=== PATIENT | male | born 1970 | race Caucasian/White ===

== ENCOUNTER → 2022-01-05 | Outpatient (CLI) | payer BC ==
--- NOTE | 2022-02-11 13:00 | EM ---
EVENT MONITOR INDICATION: Palpitations. This event monitor shows episodes of atrial fibrillation with rapid ventricular rate. The fastest heart rate was 187 beats per minute. There were no significant pauses and the patient had was intermittently in sinus rhythm. CONCLUSION: This 30-day event monitor shows multiple episodes of atrial fibrillation with heart rates in the 180 beats per minute. MMODL / IJN: [id number] /
== END | disposition home or self-care (01) ==
LOC: RADECHMAIN 07:26
PROVIDERS: ATTEND Internal Medicine
DX: I48.91 Unspecified atrial fibrillation (principal)
CPT/HCPCS: 93270

== ENCOUNTER 2022-01-08 14:51 | Observation (INO) | payer BC ==
[2022-01-08 14:56] VITALS: TEMP 98.1
[2022-01-08 15:18] LABS: Basophils # (A) 0.1 k/uL (0-0.2); Basophils % (A) 1 %; Eosinophils # (A) 0.4 k/uL (0-0.7); Eosinophils % (A) 5 %; HCT 40.4 % (39.0-53.0); HGB 13.9 gm/dL (13.0-17.5); Lymphocytes # (A) 2.3 k/uL (1.0-4.8); Lymphocytes % (A) 34 %; MCH 34.6 pg (25.0-35.0); MCHC 34.4 g/dL (31.0-37.0); MCV 100.7 fL (80.0-100.0); Mean Platelet Volume 7.8; Monocytes # (A) 0.4 k/uL (0-1.0); Monocytes % (A) 6 %; Neutrophils # (A) 3.4 k/uL (1.3-7.7); Neutrophils % (A) 50 %; Platelet Count 217 k/uL (150-450); RBC 4.01 m/uL (4.30-5.90); RDW 12.2 % (11.5-15.5); WBC 6.7 k/uL (3.8-10.6)
[2022-01-08 15:27] LABS: ALT 47 U/L (4-49); AST 68 U/L (17-59); African American GFR (CKD) >90 (>60 ml/min/1.73 sqM); Albumin 4.3 g/dL (3.5-5.0); Alkaline Phosphatase 105 U/L (38-126); Anion Gap 11 mmol/L; Blood Urea Nitrogen 22 mg/dL (9-20); Calcium 9.4 mg/dL (8.4-10.2); Carbon Dioxide 24 mmol/L (22-30); Chloride 100 mmol/L (98-107); Glucose 102 mg/dL (74-99); Magnesium 1.7 mg/dL (1.6-2.3); Non-African American GFR(CKD) >90 (>60 ml/min/1.73 sqM); Sodium 135 mmol/L (137-145); Total Bilirubin 0.4 mg/dL (0.2-1.3); Total Protein 6.6 g/dL (6.3-8.2)
[2022-01-08 15:34] LABS: Prothrombin Time 10.8 sec (9.0-12.0)
[2022-01-08] MEDS ORDERED: NALOXONE 0.4 MG/ML 1 ML VIAL IV PRN (17:53)
--- NOTE | 2022-01-08 17:58 | ED ---
General Adult HPI - General Chief complaint: Arrhythmia/Palpitations Stated complaint: Heart monitor issues-sent by PCP Time Seen by Provider: 01/08/22 17:23 Source: patient Mode of arrival: wheelchair Limitations: no limitations - History of Present Illness Initial comments: Dictation was produced using [employer] dictation software. please excuse any grammatical, word or spelling errors. Chief Complaint: 61-year-old male presents with instructions from primary care physician to come to the emergency room for abnormal Holter monitor reading History of Present Illness: Patient is a 61-year-old male he was told to come to the emergency department for abnormal Holter monitor reading. Patient has been wearing a Holter monitor for the last 2 days. Patient had a Holter monitor placed by his primary care doctor. Apparently Holter monitor company noticed that patient has been having heart rates in the 190-180 range concerning for atrial fibrillation paroxysms. Patient denies any symptoms currently. He has been having symptoms of palpitations. The ROS documented in this emergency department record has been reviewed and con firmed by me. Those systems with pertinent positive or negative responses have been documented in the HPI. All other systems are other negative and/or noncontributory. PHYSICAL EXAM: General Impression: Alert and oriented x3, not in acute distress HEENT: Normocephalic atraumatic, extra-ocular movements intact, pupils equal and reactive to light bilaterally, mucous membranes moist. Cardiovascular: Heart regular rate and rhythm Chest: Able to complete full sentences, no retractions, no tachypnea Abdomen: abdomen soft, non-tender, non-distended, no organomegaly Musculoskeletal: Pulses present and equal in all extremities, no peripheral edema Motor: no focal deficits noted Neurological: CN II-XII grossly intact, no focal motor or sensory deficits noted Skin: Intact with no visualized rashes Psych: Normal affect and mood ED course: 51-year-old male presents emergency department for episodes of abnormal Holter monitor readings. Patient was notified by his primary care doctor to come to the emergency department. Vital signs upon arrival are within acceptable limits. EKG is unremarkable. Laboratory evaluation ordered found to be unremarkable. Patient be admitted to Dr. Barajas. Cardiology consulted. Dr. Barajas requested that patient be started on twice a day metoprolol. EKG interpretation: Ventricular rate 76, sinus rhythm, HI interval 133, QS 93, QTc 389. No HI prolongation, no QTC prolongation, T-wave inversions in lead 3 and aVF noted. No old EKG for comparison.. Overall, this EKG is nonspecific - Related Data Allergies Allergy/AdvReac Type Severity Reaction Status Date / Time No Known Allergies Allergy Verified 01/08/22 14:56 Review of Systems ROS Statement: Those systems with pertinent positive or pertinent negative responses have been documented in the HPI. ROS Other: All systems not noted in ROS Statement are negative. Past Medical History Past Medical History: No Reported History History of Any Multi-Drug Resistant Organisms: None Reported Past Surgical History: Hernia Repair Past Psychological History: No Psychological Hx Reported Smoking Status: Current every day smoker Past Drug Use History: None Reported General Exam Limitations: no limitations Course Vital Signs 01/08/22 14:53 Temperature 98.1 F Pulse Rate 76 Respiratory 16 Rate Blood Pressure 161/95 O2 Sat by Pulse 99 Oximetry Medical Decision Making - Lab Data Result diagrams: 01/08/22 15:12 01/08/22 15:12 Lab Results 01/08/22 01/08/22 01/08/22 Range/Units 15:12 15:12 15:12 WBC 6.7 (3.8-10.6) k/uL RBC 4.01 L (4.30-5.90) m/uL Hgb 13.9 (13.0-17.5) gm/dL Hct 40.4 (39.0-53.0) % MCV 100.7 H (80.0-100.0) fL MCH 34.6 (25.0-35.0) pg MCHC 34.4 (31.0-37.0) g/dL RDW 12.2 (11.5-15.5) % Plt Count 217 (150-450) k/uL MPV 7.8 Neutrophils % 50 % Lymphocytes % 34 % Monocytes % 6 % Eosinophils % 5 % Basophils % 1 % Neutrophils # 3.4 (1.3-7.7) k/uL Lymphocytes # 2.3 (1.0-4.8) k/uL Monocytes # 0.4 (0-1.0) k/uL Eosinophils # 0.4 (0-0.7) k/uL Basophils # 0.1 (0-0.2) k/uL PT 10.8 (9.0-12.0) sec INR 1.0 (<1.2) APTT 25.0 (22.0-30.0) sec Sodium 135 L (137-145) mmol/L Potassium 4.0 (3.5-5.1) mmol/L Chloride 100 (98-107) mmol/L Carbon Dioxide 24 (22-30) mmol/L Anion Gap 11 mmol/L BUN 22 H (9-20) mg/dL Creatinine 0.77 (0.66-1.25) mg/dL Est GFR (CKD-EPI)AfAm >90 (>60 ml/min/1.73 sqM) Est GFR (CKD-EPI)NonAf >90 (>60 ml/min/1.73 sqM) Glucose 102 H (74-99) mg/dL Calcium 9.4 (8.4-10.2) mg/dL Magnesium 1.7 (1.6-2.3) mg/dL Total Bilirubin 0.4 (0.2-1.3) mg/dL AST 68 H (17-59) U/L ALT 47 (4-49) U/L Alkaline Phosphatase 105 (38-126) U/L Troponin I (0.000-0.034) ng/mL Total Protein 6.6 (6.3-8.2) g/dL Albumin 4.3 (3.5-5.0) g/dL 01/08/22 Range/Units 15:12 WBC (3.8-10.6) k/uL RBC (4.30-5.90) m/uL Hgb (13.0-17.5) gm/dL Hct (39.0-53.0) % MCV (80.0-100.0) fL MCH (25.0-35.0) pg MCHC (31.0-37.0) g/dL RDW (11.5-15.5) % Plt Count (150-450) k/uL MPV Neutrophils % % Lymphocytes % % Monocytes % % Eosinophils % % Basophils % % Neutrophils # (1.3-7.7) k/uL Lymphocytes # (1.0-4.8) k/uL Monocytes # (0-1.0) k/uL Eosinophils # (0-0.7) k/uL Basophils # (0-0.2) k/uL PT (9.0-12.0) sec INR (<1.2) APTT (22.0-30.0) sec Sodium (137-145) mmol/L Potassium (3.5-5.1) mmol/L Chloride (98-107) mmol/L Carbon Dioxide (22-30) mmol/L Anion Gap mmol/L BUN (9-20) mg/dL Creatinine (0.66-1.25) mg/dL Est GFR (CKD-EPI)AfAm (>60 ml/min/1.73 sqM) Est GFR (CKD-EPI)NonAf (>60 ml/min/1.73 sqM) Glucose (74-99) mg/dL Calcium (8.4-10.2) mg/dL Magnesium (1.6-2.3) mg/dL Total Bilirubin (0.2-1.3) mg/dL AST (17-59) U/L ALT (4-49) U/L Alkaline Phosphatase (38-126) U/L Troponin I <0.012 (0.000-0.034) ng/mL Total Protein (6.3-8.2) g/dL Albumin (3.5-5.0) g/dL Disposition Clinical Impression: Arrhythmia Disposition: ADMITTED IP TO THIS [facility] Condition: Fair Referrals: Cortez Barajas MD [Primary Care Provider] - 1-2 days Decision Time: 17:58
[2022-01-08] MEDS ORDERED: SODIUM CHLORIDE 0.9% 1,000 ML IV SCH (18:00)
[2022-01-08] MEDS ORDERED: METOPROLOL TARTRATE 25 MG TAB PO SCH (21:00)
[2022-01-08] MEDS: METOPROLOL TARTRATE 50 MG TAB PO SCH (23:59)
[2022-01-09 05:06] VITALS: RESP 16
[2022-01-09 08:34] VITALS: PULSE 94
[2022-01-09] MEDS: METOPROLOL TARTRATE 50 MG TAB PO SCH (08:34)
[2022-01-09] MEDS ORDERED: APIXABAN 5 MG TAB PO SCH (09:00)
--- NOTE | 2022-01-09 09:18 | P.CRDCN ---
History of Present Illness Consult date: 01/09/22 History of present illness: HISTORY OF PRESENT ILLNESS: This is a 51-year-old male with no past significant medical history. Patient does not follow with a track layer head. We have been asked to see the patient in consultation for arrhythmia. Patient examined at the bedside. patient had a Holter monitor placed a few days ago for palpitations. The patient was called by his primary care physician and told to come to the hospital secondary to tach ycardia noted on his monitor. The patient was noted to be in sinus mechanism when he presented to the hospital. However he went into A. fib with RVR. The patient was started on metoprolol 50 mg twice a day. The patient remains in atrial fibrillation with a heart rate in the 90s at the time of examination. He denies any chest pain or pressure. He denies any shortness of breath. He denies a previous history of atrial fibrillation * EKG reveals sinus mechanism T-wave inversions inferiorly. No previous EKG for comparison. repeat EKG reveals atrial fibrillation with RVR * Chest xray: Not available at the time of this dictation * Laboratory data: WBC 6.7. Hemoglobin 13.9. Platelet count 217. Sodium 135. Potassium 4.0. B UN 22. Creatinine 0.77. Troponin negative x 2. * Current home cardiac medications include: none * No echocardiogram or cardiac cath performed previously REVIEW OF SYSTEMS: At the time of my exam: CONSTITUTIONAL: Denies fever or chills. HEENT: Denies blurred vision, vision changes, or eye pain. Denies hemoptysis CARDIOVASCULAR: Denies chest pain. Denies orthopnea. Denies PND. Denies palpitations RESPIRATORY: Denies shortness of breath. GASTROINTESTINAL: Denies abdominal pain. Denies nausea or vomiting. HEMATOLOGIC: Denies bleeding disorders. GENITOURINARY: Denies any blood in urine. SKIN: Denies pruitis. Denies rash. PHYSICAL EXAM: VITAL SIGNS: Reviewed. GENERAL: Well-developed in no acute distress. HEENT: Head is normocephalic. Pupils are equal, round. Sclerae anicteric. Mucous membranes of the mouth are moist. Neck supple. No JVD or thyromegaly LUNGS: Respirations even and unlabored. Lungs essentially clear to auscultation bilaterally. HEART: Irregular rate and rhythm. S1 and S2 heard. ABDOMEN: Soft. Nondistended. Nontender. EXTREMITIES: Normal range of motion. No clubbing or cyanosis. Peripheral pulses intact. No lower extremity edema NEUROLOGIC: Awake and alert. Oriented x 3. ASSESSMENT: Palpitations New-onset paroxysmal atrial fibrillation with RVR PLAN: Obtain 2-D echo to assess cardiac structure and function Continue telemetry monitoring Continue current dose of metoprolol 50 mg twice a day Begin Eliquis 5mg BID. Consider cardioversion in 4 weeks if patient remains in afib. Check TSH Further recommendations pending patient course Patient may be discharged home this afternoon if heart rates remain controlled Nurse practitioner note has been reviewed by physician. Signing provider agrees with the documented findings, assessment, and plan of care. Past Medical History Past Medical History: No Reported History History of Any Multi-Drug Resistant Organisms: None Reported Past Surgical History: Hernia Repair Past Psychological History: No Psychological Hx Reported Smoking Status: Current every day smoker Past Drug Use History: None Reported Medications and Allergies Home Medications Medication Instructions Recorded Confirmed Type Apixaban [Eliquis] 5 mg PO BID #180 tab 01/09/22 Rx Metoprolol Tartrate [Lopressor] 50 mg PO BID #180 tab 01/09/22 Rx Allergies Allergy/AdvReac Type Severity Reaction Status Date / Time No Known Allergies Allergy Verified 01/08/22 18:47 Physical Exam Vitals: Vital Signs Temp Pulse Resp BP Pulse Ox 01/09/22 06:00 89 16 112/69 98 01/09/22 05:00 84 16 108/64 98 01/09/22 04:00 88 16 110/76 98 01/08/22 22:38 131 H 18 123/70 96 01/08/22 21:36 115 H 18 01/08/22 18:37 63 18 130/80 97 01/08/22 14:53 98.1 F 76 16 161/95 99 Results 01/08/22 15:12 01/08/22 15:12 Cardiac Enzymes 01/08/22 01/08/22 Range/Units 15:12 15:12 AST 68 H (17-59) U/L Troponin I <0.012 (0.000-0.034) ng/mL Coagulation 01/08/22 Range/Units 15:12 PT 10.8 (9.0-12.0) sec APTT 25.0 (22.0-30.0) sec CBC 01/08/22 Range/Units 15:12 WBC 6.7 (3.8-10.6) k/uL RBC 4.01 L (4.30-5.90) m/uL Hgb 13.9 (13.0-17.5) gm/dL Hct 40.4 (39.0-53.0) % Plt Count 217 (150-450) k/uL Comprehensive Metabolic Panel 01/08/22 Range/Units 15:12 Sodium 135 L (137-145) mmol/L Potassium 4.0 (3.5-5.1) mmol/L Chloride 100 (98-107) mmol/L Carbon Dioxide 24 (22-30) mmol/L BUN 22 H (9-20) mg/dL Creatinine 0.77 (0.66-1.25) mg/dL Glucose 102 H (74-99) mg/dL Calcium 9.4 (8.4-10.2) mg/dL AST 68 H (17-59) U/L ALT 47 (4-49) U/L Alkaline Phosphatase 105 (38-126) U/L Total Protein 6.6 (6.3-8.2) g/dL Albumin 4.3 (3.5-5.0) g/dL Current Medications Generic Name Dose Route Start Last Admin Trade Name Freq PRN Reason Stop Dose Admin Sodium Chloride 1,000 mls @ 20 mls/hr 01/08/22 18:00 01/08/22 18:37 Saline 0.9% IV 20 mls/hr .Q24H NICOLE Administration Metoprolol Tartrate 50 mg 01/08/22 23:30 01/08/22 23:59 Metoprolol Tartrate 50 Mg Tab PO 50 mg BID NICOLE Administration Naloxone HCl 0.2 mg 01/08/22 17:53 Naloxone 0.4 Mg/Ml 1 Ml Vial IV Q2M PRN Opioid Reversal 01/08/22 15:12 01/08/22 15:12
--- NOTE | 2022-01-09 11:31 | P.HPIM ---
History of Present Illness H&P Date: 01/08/22 HISTORY OF PRESENT ILLNESS: This is a 51-year-old male patient with past medical history of tobacco use and dependence, alcohol abuse, hemorrhoids prolapse. Patient has been seen in the office on 12/30 complaining of palpitations for which a Holter monitor was arranged as well as patient was scheduled for Cardiolite stress test to rule out coronary artery disease. Holter monitor found patient to be tachycardic and he was advised to come into the emergency center for further evaluation. Patient initially presented with sinus tachycardia. EKG was sinus rhythm with T-wave inversions inferiorly. Repeat EKG revealed Atrial fibrillation with RVR. WBC 6.7, hemoglobin 13.9, platelet count 217. INR 1.0. Sodium 135, potassium 4.0, chloride 100, CO2 24, BUN 22 and creatinine 0.77. Glucose 102. Calcium 9.4. Magnesium 1.7. Total bilirubin 0.4. AST 68, ALT 47, alkaline phosphatase 105. Troponin negative. Albumin 4.3. REVIEW OF SYSTEMS: Constitutional: No documented fever, no chills, no night sweats. No weight change. No weakness, fatigue or lethargy. No daytime sleepiness. EENT: No headache. No blurred vision or double vision, no loss of vision. No loss of Hearing, no ringing in the ears, no dizziness. No nasal drainage or congestion. No epistaxis. No sore throat. Lungs: No shortness of breath, no cough, no sputum production. No wheezing. Reports dyspnea with activity. Cardiovascular: No chest pain, no lower extremity edema. No palpitations. No paroxysmal nocturnal dyspnea. No orthopnea. No lightheadedness or dizziness. No syncopal episodes. Abdominal: Reports abdominal pain. No nausea, vomiting. No diarrhea. No constipation. No bloody or tarry stools reports loss of appetite. Genitourinary: No dysuria, increased frequency, urgency. No urinary retention. Musculoskeletal: No myalgias. No muscle weakness, no gait dysfunction, no frequent falls. No back pain. No neck pain. Integumentary: No wounds, no lesions. No rash or pruritus. No unusual bruising. No change in hair or nails. Neurologic: No aphasia. No facial droop. No change in mentation. No head injury. No headache. No paralysis. No paresthesia. Psychiatric: No depression. Appears to be anxiety. No mood swings. Endocrine: No abnormal blood sugars. No weight change. PAST MEDICAL HISTORY: May Tobacco use Chronic alcohol abuse PAST SURGICAL HISTORY: Hemorrhoidectomy 2020 SOCIAL HISTORY: Patient is currently smoking half to 1 pack per day since age of 15. History of alcohol abuse. FAMILY HISTORY: Founders alive at age 82 with history of CVA and atrial fibrillation. Mother is alive at age 80 with history of diabetes on insulin pump. Patient has 2 brothers and one has history of CABG 4 and in the hospital with multiorgan failure and 58. Second brother has no major medical problems. Patient has one sister with no major medical problems. PHYSICAL EXAMINATION: General: This is a 51-year-old male patient resting in the ear stretcher, appears to be comfortable at rest. No respiratory distress noted. HEENT: Head is atraumatic, normocephalic, pupils were equal round reactive to light and recommendation, extraocular muscle movement were intact, sclera nonicteric, conjunctivae were pale, mucous membranes of the mouth are somewhat dry. Neck: Supple, no JVP, normal carotid upstroke bilaterally, no lymphadenopathy. Chest: Decreased breath sounds at the bases, few rhonchi, no extremity wheezes, no chest wall tenderness, no intercostal retractions. Heart: First heart sound is normal, second heart sounds normal. There is a 2/6 systolic ejection murmur at the left sternal border, no S3, no S4. Abdomen: Soft, nontender, nondistended, positive bowel sounds. Extremities: There is no edema no calf tenderness DP +2 bilaterally. Neurologic examination: Patient is awake alert and oriented x3, cranial nerves II-12 appear grossly intact, muscle power were 5 out of 5 in upper extremities and 5 out of 5 in bilateral lower extremities, deep tendon reflexes normal bilaterally. ASSESSMENT AND PLAN: 1. Atrial fibrillation with RVR, paroxysmal atrial fibrillation. Patient has been started on metoprolol 25 mg twice daily, cardiology consult. 2. Palpitations. Outpatient Holter monitor was arranged for the patient. 3. Tobacco use and dependence. Patient declines need for nicotine patch. 4. History of alcohol abuse. 5. GI prophylaxis. 6. DVT prophylaxis. Patient is observation status. Past Medical History Past Medical History: No Reported History History of Any Multi-Drug Resistant Organisms: None Reported Past Surgical History: Hernia Repair Additional Past Surgical History / Comment(s): pins to right index finger as a child, hemmoroidectomy Past Anesthesia/Blood Transfusion Reactions: No Reported Reaction Past Psychological History: No Psychological Hx Reported Smoking Status: Current every day smoker Past Drug Use History: None Reported Medications and Allergies Home Medications Medication Instructions Recorded Confirmed Type Apixaban [Eliquis] 5 mg PO BID #180 tab 01/09/22 Rx Metoprolol Tartrate [Lopressor] 50 mg PO BID #180 tab 01/09/22 Rx Allergies Allergy/AdvReac Type Severity Reaction Status Date / Time No Known Allergies Allergy Verified 01/08/22 18:47 Physical Exam Vitals: Vital Signs Temp Pulse Resp BP Pulse Ox 01/09/22 08:33 94 16 98/73 96 01/09/22 06:00 89 16 112/69 98 01/09/22 05:00 84 16 108/64 98 01/09/22 04:00 88 16 110/76 98 01/08/22 22:38 131 H 18 123/70 96 01/08/22 21:36 115 H 18 01/08/22 18:37 63 18 130/80 97 01/08/22 14:53 98.1 F 76 16 161/95 99 Intake and Output 01/08/22 01/09/22 01/09/22 22:59 06:59 14:59 Other: # Voids 1 Weight 68.039 kg Results CBC & Chem 7: 01/08/22 15:12 01/08/22 15:12 Labs: Abnormal Lab Results - Last 24 Hours (Table) 01/08/22 01/08/22 Range/Units 15:12 15:12 RBC 4.01 L (4.30-5.90) m/uL MCV 100.7 H (80.0-100.0) fL Sodium 135 L (137-145) mmol/L BUN 22 H (9-20) mg/dL Glucose 102 H (74-99) mg/dL AST 68 H (17-59) U/L Thrombosis Risk Factor Assmnt - Choose All That Apply Any of the Below Risk Factors Present?: Yes Each Factor Represents 1 point: Age 41-60 years Other Risk Factors: No Thrombosis Risk Factor Assessment Total Risk Factor Score: 1 Thrombosis Risk Factor Assessment Level: Low Risk
--- NOTE | 2022-01-09 12:53 | CA ---
Transthoracic Echo Report Name: Grayson Garcia Age: 51 Gender: M : 1970 Exam Date: 01/09/2022 08:44 Exam Location: [facility] Ht (in): 73 Wt (lb): 150 Ordering Physician: Eliza Walker Attending/Referring Phys: [id number], Denise Civil Service Worker Ximena Hernandez RDCS Procedure CPT: Indications: LV function Cardiac Hx: Technical Quality: Fair Contrast 1: Total Dose (mL): Contrast 2: Total Dose (mL): MEASUREMENTS (Male / Female) Normal Values 2D ECHO LV Diastolic Diameter PLAX 3.7 cm 4.2 - 5.9 / 3.9 - 5.3 cm LV Systolic Diameter PLAX 2.8 cm IVS Diastolic Thickness 1.2 cm 0.6 - 1.0 / 0.6 - 0.9 cm LVPW Diastolic Thickness 1.3 cm 0.6 - 1.0 / 0.6 - 0.9 cm LV Relative Wall Thickness 0.7 RV Internal Dim ED PLAX 3.5 cm LA Volume 33.5 cm??? 18 - 58 / 22 - 52 cm??? M-MODE Aortic Root Diameter MM 3.6 cm LA Systolic Diameter MM 2.8 cm LA Ao Ratio MM 0.8 AV Cusp Separation MM 2.3 cm DOPPLER AV Peak Velocity 101.0 cm/s AV Peak Gradient 4.1 mmHg LVOT Peak Velocity 74.5 cm/s LVOT Peak Gradient 2.2 mmHg FINDINGS Left Ventricle Mildly increased left ventricular wall thickness. Normal left ventricular systolic function with no obvious regional wall motion abnormalities. Left ventricular ejection fraction is estimated at 55-60 %. Right Ventricle Normal right ventricular size and function. Right Atrium Normal right atrial size. Left Atrium Normal left atrial size. No evidence for an atrial septal defect. Mitral Valve Structurally normal mitral valve. No mitral stenosis, regurgitation or prolapse. Aortic Valve No aortic stenosis. No aortic regurgitation. Trileaflet aortic valve. Tricuspid Valve Structurally normal tricuspid valve. Trace tricuspid regurgitation. Pulmonic Valve Trace pulmonic regurgitation. Pericardium No pericardial effusion. Aorta Normal size aortic root and proximal ascending aorta. CONCLUSIONS Normal left ventricular dimension and systolic function Previewed by: Dr. Helder Resendiz MD (Electronically Signed) Final Date: 09 January 2022 12:52
[2022-01-09 12:56] VITALS: BP 121/66
--- NOTE | 2022-01-09 13:48 | P.DS ---
Providers Date of admission: 01/08/22 17:53 Expected date of discharge: 01/09/22 Attending physician: Cortez Barajas Consults: 01/08/22 17:53 Consult Physician Routine Consulting Provider: Rashad Francisco Consult Reason/Comments: arrythmia Do you want consulting provider notified?: Yes Primary care physician: Cortez Barajas Hospital Course: HISTORY OF PRESENT ILLNESS: This is a 51-year-old male patient with past medical history of tobacco use and dependence, alcohol abuse, hemorrhoids prolapse. Patient has been seen in the office on 12/30 complaining of palpitations for which a Holter monitor was arranged as well as patient was scheduled for Cardiolite stress test to rule out coronary artery disease. Holter monitor found patient to be tachycardic and he was advised to come into the emergency center for further evaluation. Patient initially presented with sinus tachycardia. EKG was sinus rhythm with T-wave inversions inferiorly. Repeat EKG A. fib with RVR. WBC 6.7, hemoglobin 13.9, platelet count 217. INR 1.0. Sodium 135, potassium 4.0, chloride 100, CO2 24, BUN 22 and creatinine 0.77. Glucose 102. Calcium 9.4. Magnesium 1.7. Total bilirubin 0.4. AST 68, ALT 47, alkaline phosphatase 105. Troponin negative. Albumin 4.3. 01/09: Patient's heart rate today is running between 105 and 120. Patient's been seen by cardiology and metoprolol increased to 50 mg twice daily and eliquis added. Patient may require cardioversion in 4 weeks if he remains in atrial fibrillation. Repeat troponin is negative. TSH 1.650. Echocardiogram reveals EF of 55-60%, trace tricuspid regurgitation, trace pulmonic regurgitation. By the afternoon heart rate was running mostly in the 89 and 94 range and patient had been cleared by cardiology for discharge. Patient is anxious to go home today. Patient will be discharged today in stable condition. DISCHARGE DIAGNOSES 1. Atrial fibrillation with RVR, paroxysmal atrial fibrillation. 2. Palpitations. 3. Tobacco use and dependence. 4. History of alcohol abuse. [facility] [place] [facility] PLAN Home Greater than 35 minutes was utilized and coordinating patient's discharge. Impression and plan of care have been directed as dictated by the signing physician. Carolina Lima nurse practitioner acting as scribe for signing physician. Patient Condition at Discharge: Good Plan - Discharge Summary Discharge Rx Participant: No New Discharge Prescriptions: New Apixaban [Eliquis] 5 mg PO BID #180 tab Metoprolol Tartrate [Lopressor] 50 mg PO BID #180 tab Discharge Medication List Apixaban [Eliquis] 5 mg PO BID #180 tab 01/09/22 [Rx] Metoprolol Tartrate [Lopressor] 50 mg PO BID #180 tab 01/09/22 [Rx] Follow up Appointment(s)/Referral(s): Cortez Barajas MD [Primary Care Provider] - 1 Week Helder Resendiz MD [STAFF PHYSICIAN] - 1 Week Patient Instructions/Handouts: A-fib (Atrial Fibrillation) (GEN) Discharge Disposition: HOME SELF-CARE
== END 2022-01-09 13:30 | disposition home or self-care (01) ==
LOC: EC 14:51 → 6NMEDSUR 17:53
PROVIDERS: ADMIT Internal Medicine; ATTEND Internal Medicine
DX: I48.0 Paroxysmal atrial fibrillation (principal); F17.200 Nicotine dependence, unspecified, uncomplicated; I07.1 Rheumatic tricuspid insufficiency; I37.1 Nonrheumatic pulmonary valve insufficiency; F10.10 Alcohol abuse, uncomplicated; Z82.3 Family history of stroke; Z83.3 Family history of diabetes mellitus; Z82.49 Family history of ischemic heart disease and other diseases of the circulatory system; Z79.01 Long term (current) use of anticoagulants; Z79.899 Other long term (current) drug therapy
CPT/HCPCS: 99285; 36415; 93005; 93306; 80053; 84443; 83735; 84484 ×2; 85025; 85610; 85730; G0378 ×2

== ENCOUNTER → 2022-01-27 | Outpatient (CLI) | payer BC ==
[~2022-01-27] MED LIST: REGADENOSON 0.4 MG/5 ML SYRINGE IV ONE
--- NOTE | 2022-01-27 12:57 | CA ---
Lexiscan Nuclear Stress Test Report Name: Grayson Garcia Exam Date: 01/27/2022 10:10 Exam Location: [facility] Ht (in): 73 Wt (lb): 155 BSA: 1.93 Ordering Phys: Cortez Barajas MD Referring Phys: Jenn, Technologist: Bhupendra Koehler Age: 51 Gender: M : 1970 Procedure CPT: Indications: R00.2 palpitations ICD-10 Codes: Patient History: Medications: METOPROLOL,,,,,, ELOQUIS,,,,, Meds past 24 hrs: Pretest Chest Pain: STRESS TEST Lexiscan Protocol Exercise Duration (min:sec): 01:[address] Depressions (mm): Angina Score: Hopkins Score: Resting HR (bpm): 56 Peak HR (bpm): 83 Resting BP (mmHg): 126 / 79 Peak BP (mmHg): 136 / 75 MPHR: 167 Target HR: 142 % MPHR: 50 METS: 1.0 Total Dose: Peak Dose: Atropine: Double Product: 68879 BP Response: Stress Termination: INFUSION COMPLETE Stress Symptoms: DIFFICULTY IN BREATHING Stress Summary: ECG ANALYSIS Resting ECG: Stress ECG: CONCLUSIONS At baseline EKG showed normal sinus rhythm, normal axis, no significant ST or T wave abnormalities. Patient recieved IV infusion of Lexiscan 0.4mg and at peak infusion EKG showed significant change from baseline. Conclusions: 1. Normal EKG response to Lexiscan infusion 2. Nuclear imaging to be reported separately. Dr. Rashad Francisco DO (Electronically Signed) Final Date: 27 January 2022 12:57
--- NOTE | 2022-01-27 14:27 | NM ---
EXAMINATION TYPE: NM stress lexiscan cardiolite DATE OF EXAM: 01/27/2022 COMPARISON: NONE HISTORY: 51 year-old male R00.2, palpitations TECHNIQUE: After the intravenous administration of 9.5 mCi Tc 99m Sestamibi - Cardiolite resting SPE CT images acquired 45 minutes post injection. The patient received 0.4mg Lexiscan, 24.5 mCi Tc 99m Sestamibi - Stress images obtained [address] injection FINDINGS: Review of stress and rest SPECT images demonstrates prominent GI activity adjacent to the maintained multiple inferior and inferoseptal wall. This results in decreased counts along the ventricular mora . No distinct reversibility is clearly identified. Gated analysis shows normal wall motion with an es timated left ventricular ejection fraction of 55 %. TID is calculated at 0.93, within normal limits. IMPRESSION: Decreased perfusion along the inferior and inferoseptal wall likely artifactual due to pr ominent adjacent GI activity. Correlate for any history of prior infarct. No convincing reversibility identified.
== END | disposition home or self-care (01) ==
LOC: RADNMMAIN 08:34
PROVIDERS: ATTEND Internal Medicine
DX: R00.2 Palpitations (principal)
CPT/HCPCS: 93017; 78452; A9500

== ENCOUNTER → 2022-05-08 | Outpatient (CLI) | payer BC ==
--- NOTE | 2022-05-08 07:52 | US ---
EXAMINATION TYPE: US liver DATE OF EXAM: 05/08/2022 COMPARISON: NONE CLINICAL HISTORY: F10.10 ALCOHOL ABUSE. Pt states he drinks approx 16 beers a day x many years TECHNIQUE: Multiple sonographic images of the right upper quadrant are obtained. FINDINGS: EXAM MEASUREMENTS: Liver Length: 16.5 cm, normal less than 15.5 cm. 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 Normal right upper quadrant ultrasound. 2. Minimal prominence of the liver.
== END | disposition home or self-care (01) ==
LOC: RADUSWWP 07:14
PROVIDERS: ATTEND Internal Medicine
DX: F10.10 Alcohol abuse, uncomplicated (principal)
CPT/HCPCS: 76705